=== PATIENT | female | born 1980 | race Caucasian/White ===

== ENCOUNTER → 2019-12-08 17:10 | Outpatient (CLI) | payer OTHER, SELFPAY ==
--- NOTE | 2019-12-08 17:16 | DI.RAD.S_ITS ---
PROCEDURE: XR ANKLE RT MIN 3V INDICATIONS: 6 week hx R ankle pain swelling s/p inversion injury TECHNIQUE: 3 views of the ankle were acquired. COMPARISON: None. FINDINGS: Bones: Cortical avulsion fracture involving the tip of the lateral malleolus. Soft tissues: Overlying soft tissue swelling. IMPRESSION: Lateral malleolar cortical fracture. Overlying soft tissue swelling. Dictated by: Bernardo Vergara M.D. on 12/09/2019 at 8:23 Approved by: Bernardo Vergara M.D. on 12/09/2019 at 8:36
== END ==
PROVIDERS: Referring Provider Registered Nurse Diabetes Educator; Visit Provider Registered Nurse Diabetes Educator
DX: S82.61XA Displaced fracture of lateral malleolus of right fibula, initial encounter for closed fracture (principal); M25.571 Pain in right ankle and joints of right foot; M25.471 Effusion, right ankle; X50.0XXA Overexertion from strenuous movement or load, initial encounter
CPT/HCPCS: 73610

== ENCOUNTER → 2020-01-26 14:54 | Outpatient (CLI) | payer OTHER, SELFPAY ==
--- NOTE | 2020-01-26 14:57 | DI.US.S_ITS ---
PROCEDURE: US PELVIC COMPLETE INDICATIONS: DYSMENORRHEA. HEAVY MENSES TECHNIQUE: Real-time scanning was performed of the pelvic organs, with image documentation. Additional endovaginal scanning was necessary due to incomplete visualization of the adnexal and endometrial structures by transabdominal scanning. COMPARISON: None. FINDINGS: Transabdominal scanning: Limited scanning through the kidneys shows no hydronephrosis. No pathologic free abdominal or pelvic fluid. Endovaginal scanning: Uterus: Uterus is normal in size at 4.1 x 5.7 x 9.1 cm. The endometrium measures 20.0 mm in combined thickness and contains 3 separate subtle hypoechoic regions within, worrisome for representing a lobulated mass Ovaries: The right ovary measures 1.5 x 2.5 x 3.7 cm in the left measures 1.0 x 1.5 x 2.5 cm. There is a hypoechoic 1.3 x 1.3 x 1.5 cm region of presumed mildly complex cyst at the right ovary, and only follicular cysts are seen at the left ovary. IMPRESSION: The endometrial lining thickness is abnormal, and the internal content of the endometrial lining is lobulated with a masslike appearance, worrisome for representing potential malignancy. Gynecological consultation is recommended, for consideration of biopsy. If clinically desired a follow-up with pelvic MR scanning without and with contrast for further characterization. Normal size ovaries bilaterally. Small presumed minimally complex right ovarian cyst measures only 5 mm in maximal dimension containing low level internal echoes. Dictated by: Fei Mcgregor M.D. on 01/26/2020 at 17:01 Approved by: Fei Mcgregor M.D. on 01/26/2020 at 17:05
== END ==
PROVIDERS: PCP Registered Nurse Diabetes Educator; Referring Provider Registered Nurse Diabetes Educator; Visit Provider Registered Nurse Diabetes Educator
DX: N94.6 Dysmenorrhea, unspecified (principal); N92.0 Excessive and frequent menstruation with regular cycle; R93.89 Abnormal findings on diagnostic imaging of other specified body structures
CPT/HCPCS: 76830; 76856

== ENCOUNTER → 2020-02-01 14:37 | Outpatient (CLI) | payer OTHER, SELFPAY ==
[2020-02-01 15:45] LABS: HCG Quantitative /Beta subunit 1587.8 mIU/mL
== END ==
PROVIDERS: PCP Registered Nurse Diabetes Educator; Referring Provider Obstetrics & Gynecology; Visit Provider Obstetrics & Gynecology
DX: N91.2 Amenorrhea, unspecified (principal)
CPT/HCPCS: 36415; 84702

== ENCOUNTER → 2020-02-03 12:33 | Outpatient (CLI) | payer OTHER, SELFPAY ==
[2020-02-03 13:55] LABS: HCG Quantitative /Beta subunit 1974.2 mIU/mL
== END ==
PROVIDERS: PCP Registered Nurse Diabetes Educator; Referring Provider Obstetrics & Gynecology; Visit Provider Obstetrics & Gynecology
DX: Z34.90 Encounter for supervision of normal pregnancy, unspecified, unspecified trimester (principal)
CPT/HCPCS: 36415; 84702

== ENCOUNTER → 2020-02-08 08:43 | Outpatient (CLI) | payer OTHER, SELFPAY ==
[2020-02-08 09:40] LABS: HCG Quantitative /Beta subunit 1871.4 mIU/mL
== END ==
PROVIDERS: PCP Registered Nurse Diabetes Educator; Referring Provider Obstetrics & Gynecology; Visit Provider Obstetrics & Gynecology
DX: O20.9 Hemorrhage in early pregnancy, unspecified (principal)
CPT/HCPCS: 36415; 84702; 86850; 86900; 86901

== ENCOUNTER → 2020-03-02 09:00 | Outpatient (CLI) | payer OTHER, SELFPAY ==
[2020-03-02 11:17] LABS: HCG Quantitative /Beta subunit 36.5 mIU/mL
== END ==
PROVIDERS: PCP Registered Nurse Diabetes Educator; Referring Provider Obstetrics & Gynecology; Visit Provider Obstetrics & Gynecology
DX: O03.9 Complete or unspecified spontaneous abortion without complication (principal)
CPT/HCPCS: 36415; 84702

== ENCOUNTER → 2020-03-09 15:03 | Outpatient (CLI) | payer OTHER, SELFPAY ==
[2020-03-09 17:09] LABS: HCG Quantitative /Beta subunit 3.1 mIU/mL
== END ==
PROVIDERS: PCP Registered Nurse Diabetes Educator; Referring Provider Obstetrics & Gynecology; Visit Provider Obstetrics & Gynecology
DX: O02.1 Missed abortion (principal)
CPT/HCPCS: 36415; 84702

== ENCOUNTER → 2020-04-14 10:01 | Outpatient (CLI) | payer OTHER, SELFPAY ==
[2020-04-14 11:16] LABS: Initial Volume 4.5 mL; Semen 30 min. Liquification? Yes
[2020-04-14 11:17] LABS: Final Volume 0.5 mL
== END ==
PROVIDERS: PCP Registered Nurse Diabetes Educator; Referring Provider Obstetrics & Gynecology; Visit Provider Obstetrics & Gynecology
DX: N97.0 Female infertility associated with anovulation (principal)
CPT/HCPCS: 58323

== ENCOUNTER → 2020-08-04 14:41 | Outpatient (CLI) | payer OTHER, SELFPAY ==
--- NOTE | 2020-08-04 14:42 | DI.US.S_ITS ---
PROCEDURE: US PELVIC COMPLETE INDICATIONS: f/u cyst and endometrial abnormality TECHNIQUE: Real-time scanning was performed of the pelvic organs, with image documentation. Additional endovaginal scanning was necessary due to incomplete visualization of the adnexal and endometrial structures by transabdominal scanning. COMPARISON: [facility], , US PELVIC COMPLETE, 01/26/2020, 15:28. [facility], , US PELVIC COMPLETE, 04/13/2020, 14:58. [facility], , US PELVIC COMPLETE, 04/12/2020, 11:41. FINDINGS: Uterus: Uterus is normal in size at 3.3 x 5.1 x 5.4 cm. The endometrium measures 5.0 mm in combined thickness. Ovaries: The right ovary measures 2.0 x 1.9 x 2.8 cm and the left measures 2.8 x 1.6 x 2.2 cm. A single follicular cyst is seen at the right ovary, 2 adjacent follicular cysts appear in apposition on the left. Other: No pathologic free abdominal or pelvic fluid. IMPRESSION: No sign of ovarian torsion. An endometrial mass is not seen. A single follicular cyst is seen on the right, no enlarged follicular cysts are seen on the left but to in direct apposition appear present. No cystic or solid ovarian masses are suspected. Dictated by: Fei Mcgregor M.D. on 08/04/2020 at 17:16 Approved by: Fei Mcgregor M.D. on 08/04/2020 at 17:20
== END ==
PROVIDERS: PCP Registered Nurse Diabetes Educator; Referring Provider Registered Nurse Diabetes Educator; Visit Provider Registered Nurse Diabetes Educator
DX: N83.01 Follicular cyst of right ovary (principal)
CPT/HCPCS: 76830; 76856

== ENCOUNTER → 2020-09-27 17:13 | Outpatient (CLI) | payer OTHER, SELFPAY ==
--- NOTE | 2020-09-27 | DI.MG.S_ITS ---
BILATERAL DIGITAL SCREENING MAMMOGRAM 3D/2D WITH CAD WITH AUGMENTATION: 09/27/2020 CLINICAL: Routine screening. Comparison is made to exam dated: 03/26/2016 mammogram - outside location. The tissue of both breasts is heterogeneously dense. This may lower the sensitivity of mammography. Current study was also evaluated with a Computer Aided Detection (CAD) system. Bilateral breast implants are intact. No significant masses, calcifications, or other findings are seen in either breast. There has been no significant interval change. IMPRESSION: NEGATIVE There is no mammographic evidence of malignancy. A 1 year screening mammogram is recommended. This exam was interpreted at Station ID: [id number]. NOTE: For mammograms, a report in lay terms will be sent to the patient. Approximately 15% of breast malignancies will not be visualized mammographically. In the management of a palpable breast mass, a negative mammogram must not discourage biopsy of a clinically suspicious lesion. Electronically Signed By: Jose Miguel cruz/rodri:09/28/2020 07:53:45 letter sent: Normal Exam ACR BI-RADS Category 1: Negative [id number]
== END ==
PROVIDERS: PCP Registered Nurse Diabetes Educator; Referring Provider Registered Nurse Diabetes Educator; Visit Provider Registered Nurse Diabetes Educator
DX: Z12.31 Encounter for screening mammogram for malignant neoplasm of breast (principal)
CPT/HCPCS: 77063; 77067